=== PATIENT | male | born 1960 | race Caucasian/White ===

== ENCOUNTER 2017-05-11 09:27 | Outpatient (CLI) | payer OTHER ==
[2017-05-11] MEDS ORDERED: methylPREDNISolone ACETATE 80 MG/ML ONE (09:53)
[2017-05-11] MEDS ORDERED: NS 50 ML IV ONE (09:54)
[2017-05-11] MEDS ORDERED: LIDOCAINE 1%, 20 ML MDV 20 ML ONE (09:54)
[2017-05-11] MEDS ORDERED: BUPIVACAINE /PF 0.25% 30 ML VIAL INJ ONE (09:54)
[2017-05-11] MEDS ORDERED: IOHEXOL 50 ML IV ONE (10:21)
== END 2017-05-11 17:10 | disposition home or self-care (01) ==
LOC: SRD 09:27
PROVIDERS: ATTEND Orthopaedic Surgery
DX: M25.551 Pain in right hip (principal); M16.11 Unilateral primary osteoarthritis, right hip
CPT/HCPCS: 20610; 77002; J1040; J2001; J3490; Q9967